=== PATIENT | female | born 1985 ===

== ENCOUNTER 2025-05-13 13:39 | Outpatient (AMB) | payer OTHER, SELFPAY ==
--- NOTE | 2025-05-13 13:44 | A.OFFPC_ITS ---
Vital Signs 05/13/25 13:49 Height 5 ft 3 in Weight 213 lb BMI 37.7 BP 132/78 Blood Pressure Location Lt brachial Position Sitting Pulse 90 Pulse Source Pulse Oximeter Pulse Oximetry (%) 98 Intake Visit Reasons: Encounter to establish care Healthcare Administrator Required: No Accompanied by: Self / Same As Patient Allergies lisinopril Allergy (Mild, Verified 05/13/25 13:51) Unknown Medication List - Last Reconciled 05/13/25 by Regulo Nguyen MD atorvastatin 20 mg PO DAILY blood sugar diagnostic (FreeStyle Lite Strips) As directed cromolyn 4% 1 drp ophthalmic (eye) QID PRN ferrous sulfate 325 mg PO DAILY glipizide ER 5 mg PO DAILY lancets (FreeStyle Lancets) As directed levothyroxine mcg PO magnesium oxide 400 mg PO DAILY metformin ER mg PO Tobacco use date assessed: 05/13/25 Dental Screening Dental Screen Date: 05/13/25 Did you have a dental visit in the last 12 months?: Yes Did you have a dental problem in the last 6 months where you did not have access to dental care?: No Was dental information given to patient?: Patient has dentist HPI Encounter to establish care HPI Details Chief Complaint The patient presents for Establish care visit . History The patient is a 40-year-old female presenting Diabetes Mellitus Type 2: - The patient has a history of diabetes mellitus type 2. - Current concern regarding suboptimal c ontrol of glycated hemoglobin (HbA1c) with a recent value of 8.3. - Previous HbA1c target of below 7 was u nmet. - has Rx for oral medications such as Ja rdiance. but not taking, afraid of side effects - dietary management discussed focusing on reducing carbohydrate intake such as rice, bread, pasta, - Current medications include Metformin and Glipizide for glycemic control. Hyperlipidemia: - On treatment with Atorvastatin for cho lesterol management. - Reports were initially prescribed Ator vastatin approximately 10 years ago by an [place] physician. - No recent blood lipid panel , want to stop med and repeat labs Anemia: - The patient reports a diagnosis of ane ko with associated iron deficiency. - Previous history of heavy menstrual bl eeding, now improved. - Unsure of the current iron levels as n o recent iron studies conducted. - Reports taking iron supplementation fo r anemia management. Obesity with BMI of 37.7 Medical History: - Type 2 Diabetes Mellitus. - Hyperlipidemia, treated with Atorvasta tin. - Anemia, iron deficiency reported. - Long-term treatment with Levothyroxine for thyroid function management (approx. 10-15 years). Diagnostic Results: - Labs: HbA1c recorded at 8.3 ,today Health Maintenance - Blood glucose monitoring discussion wi log requirement post-prandial. - Dietary recommendations to reduce carb ohydrate intake focusing on rice, bread, and pasta. - Follow-up blood tests scheduled to ass ess diabetes and anemia in 6 weeks. - Discussion of annual flu vaccine, john robles the patient declined. - Pap smear discussed Medications - Metformin 1000 mg, twice daily, for di abetes management. - Glipizide, 10 mg bid , for diabetes peyton short. - Atorvastatin, for hyperlipidemia aracelis castillo. - Iron supplements for anemia management . Social History - The patient resides in [place]. - Family support involves her son who te nds to provide transportation. and is here with Patient Problem List - Type 2 Diabetes Mellitus - Hyperlipidemia - Iron Deficiency Anemia - Obesity - Hypothyroid Patient Instructions - Monitor blood glucose levels and maint ain a detailed log. - Focus on dietary changes to reduce car bohydrate intake. - Schedule follow-up blood work in six w eeks. - continue current medications . - Plan for a future Pap smear - Declined flu vaccination f/u 2 M . Review of Systems - General: No fever no chills - Neurological: No headaches no dizzin ess - Ear nose throat: No sore throat no hearing difficulty no ear pain - Cardiovascular: No syncope, no chest pain, no palpitations - Gastrointestinal: No nausea vomiting or diarrhea - Endocrine: No polyuria polydipsia no heat intolerance - Genitourinary: No dysuria - Skin: No new complaints Physical Exam General: Cooperative, healthy appearing, comfortable, no acute distress Orientation: Patient oriented x3 Limitations: none Head: Normal to inspection Ears: Within normal limit visually Nose: Normal external nose present Face and sinus: Normal facial exam Eyes: Appearance normal, extraocular movement intact pupils reactive Neck: Normal visual inspection and supple Respiratory: Normal respiratory effort and able to speak in complete sentences. Clear to auscultation, no stridor Cardiovascular: S1 and S2 RRR GI: Normal to inspection. Soft to palpation and nontender Skin: Turgor normal, no acute findings Neuro: Patient oriented x3, motor sensory intact Extremities: Normal to inspection PFSH Surgical History Hx of section Social History Patient Tobacco Use Status: Never used Tobacco e-Cigarette/Vaping Use: Never Used service: No Questionnaire PHQ-9 Over the last 2 weeks, how often have you been bothered by any of the following problems? 1. Little interest or pleasure in doing things: not at all 2. Feeling down, depressed, or hopeless: not at all 3. Trouble falling or staying asleep, or sleeping too much: not at all 4. Feeling tired or having little energy: not at all 5. Poor appetite or overeating: not at all 6. Feeling bad about yourself - or that you are a failure or have let yourself or your family down: not at all 7. Trouble concentrating on things, such as reading the newspaper or watching television: not at all 8. Moving or speaking so slowly that other people could have noticed. Or the opposite - being so fidgety or restless that you have been moving around a lot more than usual: not at all 9. Thoughts that you would be better off or of hurting yourself in some way: not at all Total score: 0 Depression Screening Interpretation: Negative Depression Screening Done: Yes 55203 - PHQ-9 Billing: Yes Source: Developed by Drs. Ld Dunn, Nicole August, Papi Sanabria and colleagues, with an educational christi from [employer]. Thrive Questionnaire Date Thrive assessed: 05/13/25 I am a: Patient What is your living situation today?: I have a steady place to live Within the past 12 months, did the food you bought not last and you didn't have the money to get more?: Never true Within the past 12 months, did you worry whether your food would run out before you got money to buy more?: Never true Do you have trouble paying for medicines?: No Do you have trouble getting transportation to medical appointments?: No Do you have trouble paying your heating and electricity bill?: No Do you have trouble taking care of your child, family member or friend?: No Do you have trouble with day-to-day activities such as bathing, preparing meals, shopping, managing finances, etc.?: No Are you currently unemployed and looking for a job?: No Are you interested in more education?: No Please select the resources that you would like help with: None Currently or been in a relationship where the following occur: No concerns reported THRIVE Score: 0 AUDIT C Alcohol Use Questionnaire (AUDIT-C) 1. How often do you have a drink containing alcohol?: Never 3. How often do you have six or more drinks on one occasion?: Never Total Score: 0 Score Reviewed/Action Taken: Yes BORIS-7 AMB Questionnaire BORIS-7 Date BORIS - 7 assessed: 05/13/25 Feeling nervous, anxious, or on edge: 0 = Not at all Not being able to stop or control worryin = Not at all Worrying too much about different things: 0 = Not at all Trouble relaxin = Not at all Being so restless that it is hard to sit still: 0 = Not at all Becoming easily annoyed or irritable: 0 = Not at all Feeling afraid as if something awful might happen: 0 = Not at all Total BORIS-7 score (0-4 normal; 5-9 mild; 10-14 moderate; 15-21 severe): 0 Source: Developed by Drs. Ld Dunn, Nicole August, Papi Sanabria and colleagues, with an educational christi from [employer]. BORIS-7 Assessment Billing BORIS-7 Assessment Tool: BORIS-7 Assessment 39773 Physical exam (Primary Care) Vital Signs: Last Vital Signs Pulse 90 05/13/25 13:49 BP 132/78 05/13/25 13:49 Pulse Ox 98 05/13/25 13:49 BMI result Body Mass Index 37.7 Tobacco/Smoking Status: Tobacco use Status Tobacco use date assessed 05/13/25 05/13/25 13:53 Patient Tobacco Use Status Never used Tobacco 05/13/25 13:53 e-Cigarette/Vaping Use Never Used 05/13/25 13:53 PHQ-9: PHQ-9 Score PHQ-9: Total score 0 05/13/25 16:15 Depression Screening Interpretation: Negative Thrive Assessment: Date of Thrive Assessment Date Thrive assessed 05/13/25 05/13/25 13:53 Currently or been in a relationship where the following occur: No concerns reported Coding Level of Care Code New Pt Level 4 (46890) Diagnoses Encounter to establish care Z76.89 Diabetes mellitus type 2, noninsulin dependent E11.9 Class 2 obesity due to excess calories with body mass index (BMI) of 37.0 to 37.9 in adult, unspecified whether serious comorbidity present E66.09; Z68.37 Obesity classification: adult class 2 (BMI 35 - 39.9) Serious obesity comorbidity presence: unspecified whether serious comorbidity present Body mass index: BMI 37.0-37.9 Lipid disorder E78.9 Iron deficiency anemia due to chronic blood loss D50.0 Anemia type: iron deficiency Iron deficiency anemia type: chronic blood loss Other specified hypothyroidism E03.8 Additional Codes BORIS-7 Assessment Billing - BORIS-7 Assessment Tool: BORIS-7 Assessment 56037 ([id number]) PHQ-9 - 77664 - PHQ-9 Billing: Yes ([id number]) Assessment & Plan Assessment & Plan (1) Encounter to establish care: Code(s): Z76.89 - Persons encountering health services in other specified circumstances (2) Diabetes mellitus type 2, noninsulin dependent: Code(s): E11.9 - Type 2 diabetes mellitus without complications Category: Medical (3) Obesity due to excess calories: Code(s): E66.09 - Other obesity due to excess calories Category: Medical Qualifiers: Obesity classification: adult class 2 (BMI 35 - 39.9) Serious obesity comorbidity presence: unspecified whether serious comorbidity present Body mass index: BMI 37.0-37.9 Qualified Code(s): E66.09 - Other obesity due to excess c alories; Z68.37 - Body mass index [BMI] 37.0-37.9, adult (4) Lipid disorder: Code(s): E78.9 - Disorder of lipoprotein metabolism, unspecified Category: Medical (5) Anemia: Code(s): D64.9 - Anemia, unspecified Category: Medical Qualifiers: Anemia type: iron deficiency Iron deficiency anemia type: chronic blood loss Qualified Code(s): D50.0 - Iron deficiency anemia secondary to blood loss (chronic) (6) Other specified hypothyroidism: Code(s): E03.8 - Other specified hypothyroidism Category: Medical Plan Diabetes Mellitus Type 2: - The patient has a history of diabetes mellitus type 2. - Current concern regarding suboptimal control of glycated hemoglobin (HbA1c) with a recent value of 8.3. - Previous HbA1c target of below 7 was unmet. - has Rx for oral medications such as Jardiance. but not taking, afraid of side effects - dietary management discussed focusing on reducing carbohydrate intake such as rice, bread, pasta, - Current medications include Metformin and Glipizide for glycemic control. Hyperlipidemia: - On treatment with Atorvastatin for cholesterol management. - Reports were initially prescribed Atorvastatin approximately 10 years ago by an [place] physician. - No recent blood lipid panel , want to stop med and repeat labs Anemia: - The patient reports a diagnosis of anemia with associated iron deficiency. - Previous history of heavy menstrual bleeding, now improved. - Unsure of the current iron levels as no recent iron studies conducted. - Reports taking iron supplementation for anemia management. Obesity with BMI of 37.7 Medical History: - Type 2 Diabetes Mellitus. - Hyperlipidemia, treated with Atorvastatin. - Anemia, iron deficiency reported. - Long-term treatment with Levothyroxine for thyroid function management (approx. 10-15 years). Diagnostic Results: - Labs: HbA1c recorded at 8.3 ,today Health Maintenance - Blood glucose monitoring discussion with log requirement post-prandial. - Dietary recommendations to reduce carbohydrate intake focusing on rice, bread, and pasta. - Follow-up blood tests scheduled to assess diabetes and anemia in 6 weeks. - Discussion of annual flu vaccine, which the patient declined. - Pap smear discussed Medications - Metformin 1000 mg, twice daily, for diabetes management. - Glipizide, 10 mg bid , for diabetes management. - Atorvastatin, for hyperlipidemia management. - Iron supplements for anemia management. Social History - The patient resides in [place]. - Family support involves her son who tends to provide transportation. and is here with Patient Problem List - Type 2 Diabetes Mellitus - Hyperlipidemia - Iron Deficiency Anemia - Obesity - Hypothyroid Patient Instructions - Monitor blood glucose levels and maintain a detailed log. - Focus on dietary changes to reduce carbohydrate intake. - Schedule follow-up blood work in six weeks. - continue current medications . - Plan for a future Pap smear - Declined flu vaccination f/u 2 M . Orders: Orders Lipid Panel Today E11.9 - Type 2 diabetes mellitus without complications, E66.09 - Other obesity due to excess calories, E78.9 - Disorder of lipoprotein metabolism, unspecified, Z76.89 - Persons encountering health services in other specified circumstances TSH reflex Free T4 Today E11.9 - Type 2 diabetes mellitus without complications, E66.09 - Other obesity due to excess calories, E78.9 - Disorder of lipoprotein metabolism, unspecified, Z76.89 - Persons encountering health services in other specified circumstances Ferritin Today D64.9 - Anemia, unspecified Complete Blood Count Auto Diff Today E11.9 - Type 2 diabetes mellitus without complications, E66.09 - Other obesity due to excess calories, E78.9 - Disorder of lipoprotein metabolism, unspecified, Z76.89 - Persons encountering health services in other specified circumstances Comprehensive Marshall. Panel Fast Today E11.9 - Type 2 diabetes mellitus without complications, E66.09 - Other obesity due to excess calories, E78.9 - Disorder of lipoprotein metabolism, unspecified, Z76.89 - Persons encountering health services in other specified circumstances Vitamin D 25-OH (D2 and D3) Today E11.9 - Type 2 diabetes mellitus without complications, E66.09 - Other obesity due to excess calories, E78.9 - Disorder of lipoprotein metabolism, unspecified, Z76.89 - Persons encountering health services in other specified circumstances Microalbumin, Random (w Creat) Today E11.9 - Type 2 diabetes mellitus without complications, E66.09 - Other obesity due to excess calories, E78.9 - Disorder of lipoprotein metabolism, unspecified, Z76.89 - Persons encountering health services in other specified circumstances Medications: New glipizide ER 10 mg (2 x 5 mg) PO BID 180 tabs 0RF
[2025-05-13 13:49] VITALS: BP 132/78; PULSE 90; O2SAT 98; BMI 37.7
--- OUTSIDE RECORDS SUMMARY | 2025-05-13 17:58 | XMS_ITS | Clinical Summary ---
Author Organization [facility] Address [address] [place] [address] Phone Care Team Providers Care Factorer Name Role Phone Calos Lorenz MD Primary Care Provider [phone] Allergies Active Allergy Reactions Criticality Noted Date Comments Lisinopril 01/18/2018 No reaction documented. Medications alcohol swabs pads, medicated 1 Each by Does not apply route 2 times daily. 12/08/19 24 Active fluoride, sodium, (DentaGeL) 1.1 % gel APPLY THIN FILM TO ALL TEETH BEFORE BED, NO EATING OR RINSING FOR 30 MIN 08/17/19 24 Active metFORMIN XR (GLUCOPHAGE-XR) 500 mg 24 hr tablet Take 2 tablets (1,000 mg total) by mouth 2 (two) times daily after breakfast and dinner. Do not crush, chew, or split. 120 each 11 11/26/19 25 026 Active levothyroxine (SYNTHROID, LEVOTHROID) 112 mcg tablet TAKE 1 TABLET BY MOUTH DAILY MON-MON. TAKE 2 TABLETS ON MONDAY. (TOTAL 8 TABS A WEEK) 102 tablet 1 12/13/19 25 Active ferrous sulfate 325 mg (65 mg elemental iron) tabletIndications :Iron deficiency anemia, unspecified TAKE 1 TABLET BY MOUTH EVERY DAY 90 tablet 1 12/13/19 25 Active atorvastatin (LIPITOR) 20 mg tabletIndications :Mixed hyperlipidemia TAKE 1 TABLET BY MOUTH EVERY DAY 90 tablet 1 02/12/20 25 Active dulaglutide (Trulicity) 1.5 mg/0.5 mL pen injector injectionIndicati ons:Type 2 diabetes mellitus without complication, without long-term current use of insulin [place] [place] [facility] [place]) Inject 0.5 mL (1.5 mg total) under the skin every 7 (seven) days. 2 mL 02/14/20 25 026 Active glipiZIDE (Glucotrol XL) 5 mg 24 hr tablet Take 1 tablet (5 mg total) by mouth 1 (one) time each day. Do not crush, chew, or split. 30 each 02/14/20 25 026 Active empagliflozin (Jardiance) 25 mg tablet Take 1 tablet (25 mg total) by mouth 1 (one) time each day in the morning. 30 tablet 02/14/20 026 Active magnesium oxide (MAG-OX) 400 mg (241.3 elemental magnesium) tablet TAKE 1 TABLET BY MOUTH EVERY DAY 90 tablet 1 02/15/20 25 Active cetirizine (ZyrTEC) 10 mg tabletIndications :Unspecified perforation of tympanic membrane, right ear TAKE 1 TABLET BY MOUTH EVERY DAY 90 tablet 2 03/25/20 25 Active freestyle (FreeStyle Lancets) 28 gauge lancetsIndication s:Type 2 diabetes mellitus with other diabetic neurological complication ([facility] [place] [facility] [place]) USE TO TEST THREE TIMES DAILY 100 each 11 04/11/20 25 Active blood sugar diagnostic (FreeStyle Lite Strips) test stripIndications: Type 2 diabetes mellitus with other diabetic neurological complication ([facility] [place], [facility] [place]) MONITOR BLOOD SUGAR 3 TIMES DAILY NEEDED 300 strip 3 04/15/20 25 Active blood sugar diagnostic (FreeStyle Lite Strips) test stripIndications: Type 2 diabetes mellitus with other diabetic neurological complication ([facility] [place], [facility] [place]) MONITOR BLOOD SUGAR 3 TIMES DAILY NEEDED 100 strip 3 12/12/19 25 025 Discontinued Active Problems Problem Noted Date Diagnosed Date Acquired hypothyroidism 06/20/2023 Secondary DM without complic ations ([facility] [place], [facility] [place]) 10/26/2022 Heavy menses 09/26/2019 Thrombocytosis 09/26/2019 Vitamin D deficiency 09/26/2019 Headache 01/18/2018 Hyperlipidemia 01/18/2018 Osteoarthritis 01/18/2018 Overview (06/09/2024): Right thumb Iron deficiency anemia 11/20/2017 Encounters Date Type Department Care Team Description 02/13/2025 10:30 AM EDT Office Visit Internal Medicine - [address] [place] [address] Calos Lorenz MD Type 2 diabetes mellitus without complication, without long-term current use of insulin ([facility] V24, [facility] V28) (Primary Dx); Mixed hyperlipidemia; Acquired hypothyroidism; Iron deficiency anemia, unspecified iron deficiency anemia type from Last 3 Months Immunizations Immunization Administration Dates Next Due Hepatitis A Adult (Havrix; V aqta) 19yo and older 12/27/2018 IPV Inactivated polio (Ipol) 6wks and older 12/27/2018 Influenza Quadravalent, MDCK , 0.5ml, preservative free (Flucelvax) 6mo and older 06/27/2022,05/24/2021,04/21/2020,2018,06/07/2018 Influenza trivalent, 0.5mL, preservative free (Fluarix; FluLaval; Fluzone) ages 6mo and older (Afluria) 3 years and older 09/08/2017,08/18/2016,06/02/2015 Influenza, Unspecified 2021 Pneumococcal conjugate 13 va lent (Prevnar 13, PCV13) 2mo and older 08/18/2016 Tdap Tetanus diptheria acell ular pertussis (Boostrix; Adacel) 7yo and older 03/05/2018 Typhoid VICPS (Typhim Vi) 2y o and older 12/27/2018 Surgical History Surgery Date Site/Laterality Comments SECTION PROCEDURE: HISTORICAL ; COMMENT: x2 Medical History Medical History Date Comments Hyperlipidemia 01/18/2018 DX:Hyperlipidemi a Hypothyroidism 11/20/2017 DX:Hypothyroidis m Iron deficiency anemia 11/20/2017 DX:Iron d eficiency anemia Type II or unspecified type diabetes mellitus with neurological manifestations, not stated as uncontrolled(250.60) ([facility] V24, [facility] V28) 11/20/2017 DX:Type II or unspecified ty pe diabetes mellitus with neurological manifestations, not stated as uncontrolled(250.60) ([facility]) Headache 01/18/2018 DX:Headache Osteoarthritis 01/18/2018 DX:Osteoarthriti s; COMMENT: Right thumb Family History Medical History Relation Name Comments Diabetes Brother Diabetes Father [place], cancer of t he stomach Stomach cancer Father Other: accidental Mother Breast cancer Neg Hx Cancer of Small Bowel Neg Hx Colon cancer Neg Hx Kidney cancer Neg Hx Ovarian cancer Neg Hx Pancreatic cancer Neg Hx Uterine cancer Neg Hx Relation Name Status Comments Brother Father DIABETIC Maternal Grandfather Maternal Grandmother Mother Paternal Grandfather Paternal Grandmother Social History Tobacco Use Types Packs/Day Years Used Date Smoking Tobacco: Never Smokeless Tobacco: Never Tobacco Cessation:Counseling Given: Not Answered Alcohol Use Standard Drinks/Week Comments Never 0 (1 standard drink = 0.6 oz pur e alcohol) Housing Instability Answer Date Recorde d Are you worried that in the next 2 months you may not have stable housing? No 07/09/2024 Food Access & Nutrition Answer Date Rec orded Do you have access to a vari ety of food including fruits and vegetables? Yes 07/09/2024 Access to Healthcare Answer Date Record ed Within the last 3 months, ho w many times did you visit the emergency department for your medical care? 0 07/09/2024 Health Literacy Answer Date Recorded How often do you need to hav e someone help you when you read instructions, pamphlets, or other written material from your doctor or pharmacy? Sometimes 07/09/2024 Caregiver: How often do you need to have someone help you when you read instructions, pamphlets, or other written material from your doctor or pharmacy? Not on file 07/09/2024 Financial Risk Answer Date Recorded How hard is it for you to pa y for the very basics like food, housing, medical care, and air conditioning / heating? Patient declined 07/09/2024 Transportation Answer Date Recorded Has the lack of transportati on kept you from meetings, work, or from getting things needed for daily living? No Has the lack of transportati on kept you from medical appointments or from getting medications? No 07/09/2024 Social Isolation Answer Date Recorded How often do you feel lonely or isolated from th ose around you? Rarely 07/09/2024 Food Risk Answer Date Recorded Within the past 12 months we worried whether our food would run out before we got money to buy more. Never true 07/09/2024 Within the past 12 months th e food we bought just didn't last and we didn't have money to get more. Never true 07/09/2024 Dependent Care Answer Date Recorded Do you need help finding or paying for care for your loved ones. For example, child care giver or elderly care for an older adult? No 07/09/2024 Education Answer Date Recorded Do you think completing more education or training, like finishing a GED, going to college, or learning a trade, would be helpful for you? No 07/09/2024 Employment and Income Answer Date Recor ded During the last four weeks, have you been actively looking for work? No 07/09/2024 Living Situation Answer Date Recorded What is your living situation? Unrecognized valu e 07/09/2024 Comments No Sex and Gender Information Value Date Recorded Sex Assigned at Female 08/21/2024 2:30 PM EST Legal Sex Female 2:41 AM EST Gender Identity Female 08/21/2024 2:30 PM EST Sexual Orientation Choose not to disclose 2024 2:30 PM EST Obstetrics History Para Term AB IAB SAB Ectopic Multiple Livin g Live Births 5 5 5 4 4 Date Outcome GA Total Labor Labor/2nd/3rd Weight Sex Type Anes PTL Jeana A1 A5 Name Clin Term Living Term 39w0 d Demise Term Living Term Living Term Living Last Filed Vital Signs Vital Sign Reading Time Taken Comments Blood Pressure 122/68 02/13/2025 10:48 AM EDT Pulse 90 02/13/2025 10:48 AM EDT Temperature 37 C (98.6 F) 02/13/2025 10:48 AM EDT Respiratory Rate - - Oxygen Saturation 98% 02/13/2025 10:48 AM EDT Inhaled Oxygen Concentration - - Weight 98 kg (216 lb) 02/13/2025 10:48 AM EDT Height 160 cm (5' 3 ) 09/03/2024 3:05 PM EST Body Mass Index 38.26 09/03/2024 3:05 PM EST Plan of Treatment Upcoming Encounters Date Type Department Care Team (Late st Contact Info) Description 08/19/2025 8:30 AM EST Office Visit Internal Medicine - [place] [address] [facility] [address] [place] [address] Calos Lorenz MD [address] [place] [address] [address] [place] [address] Health Maintenance Due Date Last Done Comments Hepatitis B Vaccines (1 of 3 - 19+ 3-dose series) 2002 HPV Vaccines (1 - 3-dose SCDM series) 2010 Pneumococcal Vaccine: Pediatrics (0 to 5 Years) and At-Risk Patients (6 to 49 Years) (2 of 2 - PPSV23, PCV20, or PCV21) 10/13/2016 08/18/2016 IPV Vaccines (2 of 3 - Adult catch-up series) 01/24/2019 12/27/2018 Depression Screening 07/24/2024 07/09/2024 Diabetes: Annual Retina Eye Exam 10/25/2024 10/26/2023 COVID-19 Vaccine ( season) 2025 Influenza Vaccine (#1) 2025 , 05/24/2021, 2021, Additional history exists Social Influencers of Health Screening 07/09/2025 07/09/2024 Diabetes: Annual Urine Albumin-Creatinine Ratio (uACR) 08/16/2025 08/16/2024, 06/20/2023 Diabetes: Annual Foot Exam 08/16/2025 08/16/2024 Diabetes: Annual GFR (Glomerular Filtration Rate) 08/16/2025 08/16/2024, 10/19/2023 Diabetes: Blood Sugar Control Test (HGBA1C) 08/16/2025 02/13/2025, 08/16/2024, 10/19/2023 Breast Cancer Screening 09/03/2026 09/03/2024 DTaP,Tdap,and Td Vaccines (2 - Td or Tdap) 03/05/2028 03/05/2018 Cervical Cancer Screening: HPV 06/05/2028 06/05/2023 Cholesterol Screening (Lipid Panel) 08/16/2029 08/16/2024, 02/13/2023 RSV Immunization Adult Patients (1 - 1-dose 75+ series) 2058 Hepatitis A Vaccines Aged Out 12/27/2018 No long er eligible based on patient's age to complete this topic HIV Screening Completed 06/05/2023 Hepatitis C Screening Completed 06/05/2023 HIB Vaccines Aged Out No longer eligi ble based on patient's age to complete this topic MMR Vaccines Aged Out No longer eligi ble based on patient's age to complete this topic Meningococcal ACWY Vaccine Aged Out N o longer eligible based on patient's age to complete this topic Meningococcal B Vaccine Aged Out No l onger eligible based on patient's age to complete this topic RSV Immunization Patients Under 20 months Aged Out No longer eligible based on patient's age to complete this topic Varicella Vaccines Aged Out No longer eligible based on patient's age to complete this topic Procedures Procedure Name Priority Date/Time Associated Diagnosis Comments HEMOGLOBIN A1C Routine 02/13/2025 11:18 AM EDT Type 2 diabetes mellitus without complication, without long-term current use of insulin ([facility] V24, [facility] V28) MG MAMMO DIGITAL SCREENING W EDISON BILAT Routine 09/03/2024 3:24 PM EST Encounter for screening mammogram for malignant neoplasm of breast MICROALBUMIN CREATININE URINE RATIO Routine 08/16/2024 11:36 AM EST Encounter for annual physical exam Type 2 diabetes mellitus without complication, without long-term current use of insulin ([facility] V24, [facility] V28) COMPREHENSIVE METABOLIC PANEL Routine 08/16/2024 11:36 AM EST Encounter for annual physical exam LIPID PANEL WITH REFLEX TO DIRECT LDL Routine 08/16/2024 11:36 AM EST Encounter for annual physical exam Mixed hyperlipidemia HPV Routine 06/05/2023 HEPATITIS C SCREENING Routine 06/05/2023 HIV SCREENING Routine 06/05/2023 from Last 3 Months or Most Recently Relevant to Health Maintenance Results * (ABNORMAL) Hemoglobin A1c (02/13/2025 11:18 AM EDT) Hemoglobin A1C 7.3(H) <6.5 % LAB CHEMISTRY METHOD 02/13/2025 3:01 PM EDT [facility] Mean Bld Glu Estim. 163 mg/dL LAB CHEMISTRY METHOD 02/13/2025 3:01 PM EDT [facility] Blood Venous blood specimen / Unknown Venipuncture / Unknown 02/13/2025 11:18 AM EDT 02/13/2025 11:18 AM EDT us Calos Lorenz MD LAB BLOOD ORDERABLES Final Resul t [facility] [address] [place] [address], [place] [phone] * MG Mammo Digital Screening w Edison bilat (09/03/2024 3:24 PM EST) Anatomical Region Laterality Modality Breast Bilateral Mammography 09/04/2024 12:4 6 PM EST Impressions 09/04/2024 12:48 PM EST No mammographic evidence of malignancy. BI-RADS: Category 1: Negative RECOMMENDATION(S): Routine screening mammogram BILATERAL in 1 year. -------- FINAL REPORT -------- Dictated By: BUBBA MARIEE Dictated Date: 09/04/2024 12:46 ET Assigned Physician: BUBBA MARIEE Reviewed and Electronically Signed By: BUBBA MARIEE Signed Date: 09/04/2024 12:48 ET Workstation ID: [id number] Transcribed By: Self Edit Transcribed Date: 09/04/2024 12:46 ET Narrative 09/04/2024 12:48 PM EST EXAM: MG MAMMO DIGITAL SCREENING W EDISON BILAT EXAM DATE AND TIME: 09/03/2024 3:03 PM HISTORY: Breast cancer screen, avg risk, asymptomatic (Age => 40y) COMPARISON: This is a baseline examination. TECHNIQUE: Bilateral digital breast tomosynthesis was performed in the MLO projection. Computer aided detection with iCAD ProFound AI 3D 3.1 was employed. TISSUE DENSITY: b: There are scattered areas of fibroglandular density. FINDINGS: There is no evidence of suspicious mass, unusual calcifications, or architectural distortion. Procedure Note Bubba Mariee MD - 09/04/2024 EXAM: MG MAMMO DIGITAL SCREENING W EDISON BILAT EXAM DATE AND TIME: 09/03/2024 3:03 PM HISTORY: Breast cancer screen, avg risk, asymptomatic (Age => 40y) COMPARISON: This is a baseline examination. TECHNIQUE: Bilateral digital breast tomosynthesis was performed in the MLOprojection. Computer aided detection with iCAD ProFound AI 3D 3.1 wasemployed. TISSUE DENSITY: b: There are scattered areas of fibroglandular density. FINDINGS: There is no evidence of suspicious mass, unusual calcifications, orarchitectural distortion. IMPRESSION: No mammographic evidence of malignancy. BI-RADS: Category 1: Negative RECOMMENDATION(S): Routine screening mammogram BILATERAL in 1 year. -------- FINAL REPORT -------- Dictated By: BUBBA MARIEE Dictated Date: 09/04/2024 12:46 ET Assigned Physician: BUBBA MARIEE Reviewed and Electronically Signed By: BUBBA MARIEE Signed Date: 09/04/2024 12:48 ET Workstation ID: [id number] Transcribed By: Self Edit Transcribed Date: 09/04/2024 12:46 ET Calos Lorenz MD IM BI PROCEDURES Final Result * Lipid panel with reflex to direct LDL (08/16/2024 11:36 AM EST) Cholesterol 125 0 - 200 mg/dL LAB CHEMISTRY METHOD 08/16/2024 3:11 PM EST [facility] Triglycerides 107 0 - 150 mg/dL LAB CHEMISTRY METHOD 08/16/2024 3:11 PM EST [facility] HDL 47 >=40 mg/dL LAB CHEMISTRY METHOD 08/16/2024 3:11 PM EST [facility] LDL Calculated 57 0 - 100 mg/dL LAB CHEMISTRY METHOD 08/16/2024 3:11 PM EST [facility] VLDL Cholesterol [place] 21.4 mg/dL LAB CHEMISTRY METHOD 08/16/2024 3:11 PM EST [facility] Non HDL Chol. (LDL+VLDL) 78 <145 mg/dL LAB CHEMISTRY METHOD 08/16/2024 3:11 PM EST [facility] Chol/HDL Ratio 2.7 0.0 - 4.4 LAB CHEMISTRY METHOD 08/16/2024 3:11 PM EST [facility] Blood Venous blood specimen / Unknown Venipuncture / Unknown 08/16/2024 11:36 AM EST 08/16/2024 11:36 AM EST Calos Lorenz MD LAB BLOOD ORDERABLES Final Resul t Performing Organization Address City/[facility]/ZIP Co de Phone Number [facility] [address] [place] [address], [place] [phone] * Microalbumin creatinine urine ratio (08/16/2024 11:36 AM EST) Creatinine, Urine 32.0 mg/dL LAB CHEMISTRY METHOD 08/16/2024 6:32 PM [facility] Microalb, Ur <5.0 0.0 - 29.0 mg/L LAB CHEMISTRY METHOD 08/16/2024 6:32 PM EST [facility] Microalb/Creat Ratio <16 <30 mg/g creat LAB CHEMISTRY METHOD 08/16/2024 6:32 PM EST [facility] Urine Urine specimen from urethra / Unknown Non-blood Collection / Unknown 08/16/2024 11:36 AM EST 08/16/2024 11:36 AM EST Calos Lorenz MD LAB URINE ORDERABLES Final Resul t [facility] [address] [place] [address], * Comprehensive metabolic panel (08/16/2024 11:36 AM EST) Sodium 135 133 - 145 mmol/L LAB CHEMISTRY METHOD 08/16/2024 3:11 PM EST [facility] Potassium 4.2 3.5 - 5.5 mmol/L LAB CHEMISTRY METHOD 08/16/2024 3:11 PM [facility] Chloride 105 96 - 110 mmol/L LAB CHEMISTRY METHOD 08/16/2024 3:11 PM [facility] CO2 23 21 - 32 mmol/L LAB CHEMISTRY METHOD 08/16/2024 3:11 PM [facility] Anion Gap 7 3 - 11 LAB CHEMISTRY METHOD 08/16/2024 3:11 PM [facility] Glucose 96 70 - 100 mg/dL LAB CHEMISTRY METHOD 08/16/2024 3:11 PM [facility] BUN 12 5 - 25 mg/dL LAB CHEMISTRY METHOD 08/16/2024 3:11 PM [facility] Creatinine 0.68 0.50 - 1.10 mg/dL LAB CHEMISTRY METHOD 08/16/2024 3:11 PM [facility] eGFR 112 >=60 mL/min/1. 73m2 LAB CHEMISTRY METHOD 08/16/2024 3:11 PM [facility] Comment:Calculation based on the Chronic Kidney Disease Epidemiology Collaboration (CKD-EPI) equation refit without adjustment for race. BUN/Creatinine Ratio 17.6 LAB CHEMISTRY METHOD 08/16/2024 3:11 PM [facility] Calcium 9.3 8.5 - 10.5 mg/dL LAB CHEMISTRY METHOD 08/16/2024 3:11 PM [facility] AST (SGOT) 19 10 - 42 unit/L LAB CHEMISTRY METHOD 08/16/2024 3:11 PM EST [facility] ALT (SGPT) 25 10 - 60 unit/L LAB CHEMISTRY METHOD 08/16/2024 3:11 PM [facility] Alkaline Phosphatase 86 42 - 121 unit/L LAB CHEMISTRY METHOD 08/16/2024 3:11 PM [facility] Total Protein 7.0 6.0 - 8.0 g/dL LAB CHEMISTRY METHOD 08/16/2024 3:11 PM [facility] Albumin 3.6 3.2 - 5.0 g/dL LAB CHEMISTRY METHOD 08/16/2024 3:11 PM [facility] Total Bilirubin 0.3 0.0 - 1.4 mg/dL LAB CHEMISTRY METHOD 08/16/2024 3:11 PM [facility] Blood Venous blood specimen / Unknown Venipuncture / Unknown 08/16/2024 11:36 AM EST 08/16/2024 11:36 AM EST Calos Lorenz MD LAB BLOOD ORDERABLES Final Resul t [facility] [address] [place] [address], * Cervical Cancer Screening: HPV (06/05/2023) [facility] Cervical Cancer Screening: HPV NEGATIVE, ABSTRACTED Historical Leah [employer] Final Result * HIV Screening (06/05/2023) [facility] HIV Screening ABSTRACTED Historical [facility] [employer] Final Result * Hepatitis C Screening (06/05/2023) [facility] Hepatitis C Screening ABSTRACTED Law Lynn MD HEALTH MAINTENANCE Final Result from Last 3 Months or Most Recently Relevant to Health Maintenance Insurance [employer] Care Teams Factorer Relationship Specialty Start Date End Date Calos Lorenz MD [address] [place] [phone] PCP - General 02/13/24
--- OUTSIDE RECORDS SUMMARY | 2025-05-13 17:58 | XMS_ITS ---
Author Name [facility] Organization Unknown Care Team Organization Name Specialty Phone Email Start Date End Da te [facility] Donte Pickens Primary Care 09/28/2022[address] [facility] [place] Bolanos Primary Care 05/31/20222023
== END 2025-05-13 14:09 | disposition home or self-care (01) ==
PROVIDERS: PCP Internal Medicine; Visit Provider Internal Medicine
DX: Z76.89 Persons encountering health services in other specified circumstances (principal); E11.9 Type 2 diabetes mellitus without complications; E66.09 Other obesity due to excess calories; Z68.37 Body mass index [BMI] 37.0-37.9, adult; E78.9 Disorder of lipoprotein metabolism, unspecified; D50.0 Iron deficiency anemia secondary to blood loss (chronic); E03.8 Other specified hypothyroidism

== ENCOUNTER → 2025-05-13 13:39 | Outpatient (BNVA) | payer OTHER, SELFPAY | PROVIDERS: PCP Internal Medicine; Visit Provider Internal Medicine | DX: E11.9 Type 2 diabetes mellitus without complications (principal); E78.5 Hyperlipidemia, unspecified; D64.9 Anemia, unspecified; E66.09 Other obesity due to excess calories; E78.9 Disorder of lipoprotein metabolism, unspecified; D50.0 Iron deficiency anemia secondary to blood loss (chronic); E03.8 Other specified hypothyroidism; Z68.37 Body mass index [BMI] 37.0-37.9, adult; Z76.89 Persons encountering health services in other specified circumstances | CPT/HCPCS: 96127; 99202 ==